=== PATIENT | female | born 1995 | race Caucasian/White ===

== ENCOUNTER 2018-10-22 17:14 | Emergency (ER) | payer OTHER ==
[2018-10-22 19:45] VITALS: BP 130/78
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
--- NOTE | 2018-10-23 15:50 | UC ---
- Progress Note Progress Note: Radiologist reading of right femur and knee x-rays from October 22, 2018 heart interpreted as no fractures. Provider interpretation from the same date is the same therefore there is no discrepancy. Course/Dx - Diagnoses Provider Diagnoses: Strain of right quadriceps muscle Discharge - Sign-Out/Discharge Documenting (check all that apply): Patient Departure All imaging exams completed and their final reports reviewed: Yes - Discharge Plan Condition: Stable Disposition: HOME Patient Education Materials: Leg Sprain (ED), Knee Immobilizer (ED) Forms: *Work Release Referrals: [facility] [Provider Group] Sonny Douglas MD [Medical Doctor] - Additional Instructions: FOLLOW UP WITH SPORTS MEDICINE. GET RECHECKED SOONER FOR ANY WORSENING OF YOUR CONDITION OR QUESTIONS OR CONCERNS. - Billing Disposition and Condition Condition: STABLE Disposition: Home
== END 2018-10-22 21:03 | disposition home or self-care (01) ==
LOC: UCCORT 17:14
DX: S76.111A Strain of right quadriceps muscle, fascia and tendon, initial encounter (principal); V86.99XA Unspecified occupant of other special all-terrain or other off-road motor vehicle injured in nontraffic accident, initial encounter; Y92.9 Unspecified place or not applicable
CPT/HCPCS: 99212; G0463

== ENCOUNTER 2019-10-20 07:27 | Emergency (ER) | payer BC, MEDICAID ==
[2019-10-20 07:45] VITALS: BP 144/64
[2019-10-20] MEDS ORDERED: Fluorescein Sodium TOPICAL* 1 MG TEST STRIP OPHTHALMIC ONE ×2 (08:21→08:31)
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
== END 2019-10-20 08:48 | disposition home or self-care (01) ==
LOC: UCCORT 07:27
DX: H92.02 Otalgia, left ear (principal)
CPT/HCPCS: 99212; A9270-GY; G0463